=== PATIENT | female | born 1950 | race Caucasian/White ===

== ENCOUNTER → 2016-08-11 | Outpatient (CLI) | payer OTHER ==
[~2016-08-11] MED LIST: AMLO-114 PO; ASPI81TA28 PO; ATOR-22 PO; GLC500 PO; MXZC25 PO; OMEG1CAP60; TPRSR/100 OR
[2016-08-11 13:32] LABS: ESTIMATED AVERAGE GLUCOSE 143 mg/dl; HA1C FLAG Normal (Normal)
[2016-08-11 13:37] LABS: ALT/SGPT 18 U/L (12-78); BLOOD UREA NITROGEN 22 mg/dl (7-18); BUN/CREATININE RATIO 18.1 (10-20); CALCIUM 8.9 mg/dl (8.5-10.1); CARBON DIOXIDE 29 mmol/L (21-32); CHLORIDE 105 mmol/L (98-107); CHOLESTEROL 231 mg/dl (0-200); GLUCOSE 110 mg/dl (70-99); SODIUM 142 mmol/L (136-145); TRIGLYCERIDES 98 mg/dl (0-150); VERY LOW DENSITY LIPOPROT CALC 20 mg/dl
[2016-08-11 13:41] LABS: ALKALINE PHOSPHATASE 93 U/L (45-117); AST/SGOT 15 U/L (15-37); CHOLESTEROL/HDL RATIO 3.6; HDL CHOLESTEROL 65 mg/dl; LDL CHOLESTEROL CALCULATED 146 mg/dl
== END | disposition home or self-care (01) ==
LOC: C.LABPVFM 07:59
PROVIDERS: ATTEND Family Medicine
DX: I10 Essential (primary) hypertension (principal); E78.5 Hyperlipidemia, unspecified; E11.9 Type 2 diabetes mellitus without complications

== ENCOUNTER → 2016-11-17 | Outpatient (CLI) | payer OTHER ==
[2016-11-17 13:32] LABS: ESTIMATED AVERAGE GLUCOSE 140 mg/dl; HA1C FLAG Normal (Normal)
[2016-11-17 13:37] LABS: BLOOD UREA NITROGEN 27 mg/dl (7-18); BUN/CREATININE RATIO 20.5 (10-20); CARBON DIOXIDE 30 mmol/L (21-32); CHLORIDE 106 mmol/L (98-107); GLUCOSE 121 mg/dl (70-99); POTASSIUM 3.7 mmol/L (3.5-5.1); SODIUM 143 mmol/L (136-145)
[2016-11-17 13:38] LABS: CALCIUM 9.4 mg/dl (8.5-10.1)
== END | disposition home or self-care (01) ==
LOC: C.LABPVFM 08:07
PROVIDERS: ATTEND Family Medicine
DX: Z00.00 Encounter for general adult medical examination without abnormal findings (principal); E11.9 Type 2 diabetes mellitus without complications

== ENCOUNTER → 2016-12-05 | Outpatient (CLI) | payer OTHER ==
--- NOTE | 2016-12-05 09:46 | DIAGNOSTIC IMAGING REPORT ---
BILATERAL ANKLE TO BRACHIAL INDICES CLINICAL HISTORY: Absent pedal pulses. COMPARISON STUDY: Left lower extremity arterial Doppler Nov 23 2010. FINDINGS: The right ankle to brachial index measured 1.01 when using the posterior tibial artery and 0.91 when using the dorsalis pedis. The left ankle-brachial index measured 0.95 when using the posterior tibial artery and dorsalis pedis. IMPRESSION: Normal bilateral ankle to brachial indices. Electronically signed by: Hank Alcantar M.D. 12/05/2016 9:45 AM Dictated Date/Time: 12/05/2016 9:44 AM
== END | disposition home or self-care (01) ==
LOC: C.ULTR 09:13
PROVIDERS: ATTEND Family Medicine
DX: R09.89 Other specified symptoms and signs involving the circulatory and respiratory systems (principal)

== ENCOUNTER → 2017-02-12 | Outpatient (CLI) | payer OTHER ==
[2017-02-12 13:01] LABS: ESTIMATED AVERAGE GLUCOSE 134 mg/dl; HA1C FLAG Normal (Normal)
[2017-02-12 14:52] LABS: RATIO 146.7 mcg/mg (0-30.0)
[2017-02-12 15:35] LABS: ALB/GLOB RATIO 0.9 (0.9-2); ALT/SGPT 21 U/L (12-78); AST/SGOT 16 U/L (15-37); BLOOD UREA NITROGEN 25 mg/dl (7-18); BUN/CREATININE RATIO 20.7 (10-20); CALCIUM 9.3 mg/dl (8.5-10.1); CARBON DIOXIDE 30 mmol/L (21-32); CHLORIDE 105 mmol/L (98-107); GLUCOSE 123 mg/dl (70-99); POTASSIUM 3.7 mmol/L (3.5-5.1); SODIUM 141 mmol/L (136-145)
[2017-02-12 15:38] LABS: ALKALINE PHOSPHATASE 90 U/L (45-117); CHOLESTEROL 237 mg/dl (0-200); CHOLESTEROL/HDL RATIO 4.1; HDL CHOLESTEROL 58 mg/dl; LDL CHOLESTEROL CALCULATED 148 mg/dl; TRIGLYCERIDES 155 mg/dl (0-150); VERY LOW DENSITY LIPOPROT CALC 31 mg/dl
== END | disposition home or self-care (01) ==
LOC: C.LABPVFM 07:19
PROVIDERS: ATTEND Nurse Practitioner Family
DX: I10 Essential (primary) hypertension (principal); E78.5 Hyperlipidemia, unspecified; E11.9 Type 2 diabetes mellitus without complications

== ENCOUNTER → 2017-03-05 | Outpatient (CLI) | payer OTHER ==
[2017-03-05 12:51] LABS: URINE APPEARANCE CLEAR (CLEAR); URINE BILIRUBIN NEG (NEG); URINE COLOR YELLOW; URINE EPITHELIAL CELL AUTO >30 /lpf (0-5); URINE NITRITE NEG (NEG); URINE PH 7.5 (4.5-7.5); URINE SPECIFIC GRAVITY 1.012 (1.000-1.030); UROBILINOGEN NEG (NEG)
[2017-03-05 12:53] LABS: MANUAL MICROSCOPIC REQUIRED? NO; REVIEW REQ? NO
== END | disposition home or self-care (01) ==
LOC: C.LABPVFM 07:29
PROVIDERS: ATTEND Nurse Practitioner Family
DX: R80.9 Proteinuria, unspecified (principal)

== ENCOUNTER 2017-03-22 19:21 | Emergency (ER) | payer OTHER ==
[~2017-03-22] VITALS: Ht 157.5 cm; Wt 69.4 kg
[~2017-03-22 19:21] MED LIST changes: -ATOR-22 PO; -GLC500 PO
[2017-03-22 19:24] VITALS: TEMP 36.7; Ht 157.5 cm; Wt 69.4 kg
[2017-03-22] MEDS ORDERED: GLC500 PO (19:50)
[2017-03-22] MEDS ORDERED: ATOR-22 PO (19:50)
--- NOTE | 2017-03-22 20:38 | EMERGENCY ROOM VISIT NOTE ---
ED Visit Note First contact with patient: 19:32 CHIEF COMPLAINT: Scalp laceration, head injury HISTORY OF PRESENT ILLNESS: This 66-year-old female patient presents emergency department ambulatory after striking the head just prior to arrival. The patient states that she was standing on a lawn chair trying to take down a hanging basket when she lost her balance and fell, striking the left side of her head off of the siding. There was no loss of consciousness, blurry vision, nausea, vomiting, or unusual behavior afterwards. The patient rates the pain as sharp and 1/10. The patient denies neck pain. The bleeding has stopped. The patient's tetanus shot is up to date. The patient does not take anticoagulants. REVIEW OF SYSTEMS: A 6 system review of systems was completed with positives and pertinent negatives listed in the HPI. ALLERGIES: No known drug allergies MEDICATIONS: See med list PMH: Diabetes, hypertension SOCIAL HISTORY: Patient lives locally with family. Nonsmoker. PHYSICAL EXAM: Vital Signs: Reviewed Nurse's notes, vital signs stable. GENERAL : This is a 66-year-old female, in no acute distress, well-developed, well- nourished. NEURO: Patient was alert and oriented to person place and time. Sensory and motor functions grossly intact. No focal neurologic deficits. Normal sensation to light and sharp touch. EYES: PERRLA. EOMI. Funduscopic exam without hemorrhages or papilledema. EARS: No hemotympanum. No erazo sign or mastoid tenderness. SKIN: There is a 2 cm laceration on the left aspect of the scalp, posterior to the ear, whose edges are gaping apart. There is no active bleeding. The wound is clean and there are no deep structures present. NECK: Supple, cervical spine nontender to palpation. RADIOGRAPHIC FINDINGS: HEAD WITHOUT CONTRAST (CT) FINDINGS: [employer] topogram: Unremarkable. Ventricles and sulci normal in size. Brain parenchyma normal in appearance with preserved murillo-white differentiation. No mass effect or midline shift. No hemorrhage or acute territorial infarct. Thickened and hyperdense appearance of the right tentorium raising concern for subdural hematoma in this location. This is notably asymmetric to the left. Paranasal sinuses and mastoid air cells clear. Calvarium intact. IMPRESSION: 1. Findings suspicious for acute subdural hematoma along the right tentorium given the history of head injury. Confirmation with noncontrast MR brain recommended. MRI HEAD: Thin acute subdural hematoma measuring 2.5 mm or less across the right tentorium and along the right lateral cerebral hemisphere. No other acute hemorrhage. No acute infarct. No midline shift or hydrocephalus. White matter foci probably statistically secondary to chronic ischemic small vessel white matter disease and less likely due to demyelinating disease or other white matter pathology in a patient of this age. Radiologist: Fco De La Rosa MD EMERGENCY DEPARTMENT COURSE: I examined the patient. CT of the head was performed given the mechanism of the injury and did show findings suspicious for possible subdural hematoma. MRI was recommended for clarification. Noncontrast MRI was performed and read by [facility]rad and did show a small subdural hematoma measuring 2.5 mm. Given this finding, the patient will need to be observed and will need transfer to a tertiary care center with neurosurgery service. Case was discussed with Dr. [facility]. The patient was transferred via ALS to [facility] emergency Department. The patient remained stable throughout her stay in the emergency department. She was asymptomatic at time of transfer. The patient's case was reviewed with Dr. Santoyo, ED attending physician, who agreed with my assessment and treatment plan. Medication reconciliation: I attest that I have personally reviewed the patient 's current medication list. Blood Pressure Screening: Patient was found to have a slightly elevated blood pressure due to circumstances. I do not believe that the patient requires hypertension monitoring. DIAGNOSIS: Subdural hematoma Current/Historical Medications Scheduled Amlodipine (Norvasc), 10 MG PO DAILY Aspirin (Aspirin Ec), 81 MG PO DAILY Atorvastatin (Lipitor), 20 MG PO HS Metformin HCl (Metformin HCl), 500 MG PO QAM Metoprolol Succinate (Metoprolol Succinate ER), 100 MG OR DAILY [place]-3 Fatty Acids (Fish Oil Burp-Less), 1,000 MG BID Triamterene/Hctz (Triamterene/Hctz 37.5-25MG Tab), 1 TAB PO DAILY Allergies Coded Allergies: No Known Allergies (Unverified , 03/22/17) Vital Signs Date Time Temp Pulse Resp B/P (MAP) Pulse Ox O2 Delivery O2 Flow Rate FiO2 03/22/17 23:32 98 18 156/93 97 Room Air 03/22/17 21:42 96 147/80 94 03/22/17 19:24 36.7 105 20 151/37 95 Room Air Laboratory Results Test 03/23/17 00:40 Departure Information Impression Primary Impression: Subdural hematoma Dispostion Home / Self-Care Condition GOOD Referrals Lor Chavez (PCP) Patient Instructions [facility]
--- NOTE | 2017-03-22 21:12 | DIAGNOSTIC IMAGING REPORT ---
HEAD WITHOUT CONTRAST (CT) CLINICAL HISTORY: 66 years-old Female presenting with head injury. TECHNIQUE: Multidetector CT imaging of the head was performed without the use of intravenous contrast. IV contrast: None. A dose lowering technique was used consistent with the principles of ALARA (as low as reasonably achievable). COMPARISON: None. CT DOSE (mGy.cm): The estimated cumulative dose is 537.48 mGy.cm. FINDINGS: [employer] topogram: Unremarkable. Ventricles and sulci normal in size. Brain parenchyma normal in appearance with preserved murillo-white differentiation. No mass effect or midline shift. No hemorrhage or acute territorial infarct. Thickened and hyperdense appearance of the right tentorium raising concern for subdural hematoma in this location. This is notably asymmetric to the left. Paranasal sinuses and mastoid air cells clear. Calvarium intact. IMPRESSION: 1. Findings suspicious for acute subdural hematoma along the right tentorium given the history of head injury. Confirmation with noncontrast MR brain recommended. Electronically signed by: Bassam Coffey M.D. 03/22/2017 9:10 PM Dictated Date/Time: 03/22/2017 9:00 PM
[2017-03-23 00:50] LABS: BASO % 0.2 %; BASO ABS # 0.02 K/uL (0-0.2); COMPLETE YES; EOS % 0.6 %; HEMATOCRIT 42.2 % (37-47); IG% 0.4 %; LYMPH % 26.2 %; LYMPH ABS # 3.17 K/uL (1.2-3.4); MEAN CELL VOLUME 84.2 fL (80-100); MEAN CORPUSCULAR HEMOGLOBIN 28.9 pg (25-34); MEAN CORPUSCULAR HGB CONC 34.4 g/dl (32-36); MEAN PLATELET VOLUME 9.3 fL (7.4-10.4); MONO % 5.7 %; NEUT % 66.9 %; PLATELET COUNT 249 K/uL (130-400); RED BLOOD COUNT 5.01 M/uL (4.2-5.4); WHITE BLOOD COUNT 12.08 K/uL (4.8-10.8)
[2017-03-23 00:59] LABS: INR 0.9 (0.9-1.1); PARTIAL THROMBOPLASTIN RATIO 1.1; PROTHROMBIN TIME (PATIENT) 9.7 SECONDS (9.0-12.0)
--- NOTE | 2017-03-23 01:05 | EMERGENCY ROOM VISIT NOTE ---
ED Visit Note First contact with patient: 19:32 Patient seen and examined at bedside. Discussed all results with patient and family all questions answered. Patient with no headache, blurred vision, dizziness, numbness or tingling, nausea or vomiting. Patient with a normal neuro exam at bedside. Discussed with patient and transferred to [place] for additional monitoring and likely repeat imaging. She verbalized understanding.
[2017-03-23 01:07] LABS: BUN/CREATININE RATIO 19.8 (10-20); CALCIUM 9.7 mg/dl (8.5-10.1); CREATININE 1.3 mg/dl (0.60-1.20); POTASSIUM 3.5 mmol/L (3.5-5.1)
[2017-03-23 01:44] VITALS: BP 134/88; PULSE 68; O2SAT 92
--- NOTE | 2017-03-23 06:30 | DIAGNOSTIC IMAGING REPORT ---
MRI OF THE BRAIN WITHOUT CONTRAST CLINICAL HISTORY: Head trauma. Pain. Abnormal head CT with possible right tentorial subdural hematoma. COMPARISON STUDY: Noncontrast head CT dated 03/22/2017 FINDINGS: Sagittal T1, axial diffusion, proton density and T2 weighted axial, coronal FLAIR, and axial T1-weighted images were acquired. No intra or extra-axial mass lesions are visualized. There is a trace right tentorial and right parietotemporal subdural hematoma. There is no midline shift. Axial diffusion-weighted images reveal no evidence of acute or subacute infarction. There is no evidence of ventricular dilatation. Proton density T2-weighted and FLAIR images reveal scattered foci of increased T2 signal within the white matter, likely on a small vessel basis. There are no abnormal flow voids. IMPRESSION: 1. Tiny right tentorial and right parietotemporal subdural hematoma, measuring a maximum of 2.4 mm in thickness. 2. No evidence of acute or subacute infarction Electronically signed by: Gabriele Hinojosa M.D. 03/23/2017 6:29 AM Dictated Date/Time: 03/23/2017 6:26 AM
== END 2017-03-23 01:44 | disposition short-term general hospital (02) ==
LOC: C.EDB 19:23 → C.EDA 03-23 01:44
DX: S06.5X0A Traumatic subdural hemorrhage without loss of consciousness, initial encounter (principal); W07.XXXA Fall from chair, initial encounter; W22.8XXA Striking against or struck by other objects, initial encounter; Y93.89 Activity, other specified; Y99.8 Other external cause status; E11.9 Type 2 diabetes mellitus without complications; I10 Essential (primary) hypertension; Z79.82 Long term (current) use of aspirin; Z79.84 Long term (current) use of oral hypoglycemic drugs; Z79.899 Other long term (current) drug therapy

== ENCOUNTER → 2017-05-18 | Outpatient (CLI) | payer OTHER ==
[~2017-05-18] MED LIST changes: +ATOR-22 PO; +GLC500 PO
== END | disposition home or self-care (01) ==
LOC: C.LABPVFM 08:10
PROVIDERS: ATTEND Nurse Practitioner Family
DX: R80.9 Proteinuria, unspecified (principal)

== ENCOUNTER → 2017-05-23 | Outpatient (CLI) | payer OTHER ==
[2017-05-23 14:34] LABS: ALT/SGPT 23 U/L (12-78); AST/SGOT 17 U/L (15-37); BLOOD UREA NITROGEN 29 mg/dl (7-18); BUN/CREATININE RATIO 20.1 (10-20); CALCIUM 9.2 mg/dl (8.5-10.1); CARBON DIOXIDE 26 mmol/L (21-32); CHLORIDE 106 mmol/L (98-107); CREATININE 1.47 mg/dl (0.60-1.20); GLUCOSE 86 mg/dl (70-99); POTASSIUM 3.6 mmol/L (3.5-5.1); SODIUM 142 mmol/L (136-145)
[2017-05-23 14:37] LABS: ALKALINE PHOSPHATASE 105 U/L (45-117)
== END | disposition home or self-care (01) ==
LOC: C.LABPVFM 07:36
PROVIDERS: ATTEND Nurse Practitioner Family
DX: E78.5 Hyperlipidemia, unspecified (principal)

== ENCOUNTER → 2017-05-28 | Outpatient (CLI) | payer OTHER ==
--- NOTE | 2017-05-28 14:31 | MAMMOGRAPHY REPORT ---
BILATERAL DIGITAL SCREENING MAMMOGRAM TOMOSYNTHESIS WITH CAD: 05/28/2017 CLINICAL HISTORY: Routine screening. Patient has no complaints. TECHNIQUE: Breast tomosynthesis in addition to standard 2D mammography was performed. Current study was also evaluated with a Computer Aided Detection (CAD) system. COMPARISON: Comparison is made to exams dated: 05/17/2015 mammogram, 05/24/2016 mammogram, 4 mammogram, 04/30/2013 mammogram, 04/17/2012 mammogram, and 04/05/2011 mammogram - [facility]. BREAST COMPOSITION: There are scattered areas of fibroglandular density in both breasts. FINDINGS: There are are minimal vascular calcifications in the breasts. Stable nodularity in the la teral right breast. No new suspicious mass, architectural distortion or cluster of microcalcificatio ns is seen. IMPRESSION: ACR BI-RADS CATEGORY 1: NEGATIVE There is no mammographic evidence of malignancy. A 1 year screening mammogram is recommended. The pa tient will receive written notification of the results. Approximately 10% of breast cancers are not detected with mammography. A negative mammographic report should not delay biopsy if a clinically suggestive mass is present. Ann Carson M.D. ay/:05/28/2017 13:49:07 Porcelain Turner: Dawson Downs, M, [facility] letter sent: Normal 1/2 BI-RADS Code: ACR BI-RADS Category 1: Negative
== END | disposition home or self-care (01) ==
LOC: C.MAMM 13:05
PROVIDERS: ATTEND Nurse Practitioner Family
DX: Z12.31 Encounter for screening mammogram for malignant neoplasm of breast (principal)

== ENCOUNTER → 2017-11-21 | Outpatient (CLI) | payer OTHER ==
[2017-11-21 12:40] LABS: BASO % 0.2 %; BASO ABS # 0.02 K/uL (0-0.2); EOS % 1.4 %; EOS ABS # 0.17 K/uL (0-0.5); HEMATOCRIT 40.6 % (37-47); HEMOGLOBIN 13.7 g/dL (12.0-16.0); IG# 0.02 K/uL (0.00-0.02); LYMPH % 25.2 %; LYMPH ABS # 2.96 K/uL (1.2-3.4); MEAN CELL VOLUME 84.4 fL (80-100); MEAN CORPUSCULAR HEMOGLOBIN 28.5 pg (25-34); MEAN CORPUSCULAR HGB CONC 33.7 g/dl (32-36); MEAN PLATELET VOLUME 9.5 fL (7.4-10.4); MONO % 7.2 %; MONO ABS # 0.85 K/uL (0.11-0.59); NEUT % 65.8 %; NEUT ABS # 7.71 K/uL (1.4-6.5); PLATELET COUNT 254 K/uL (130-400); RED CELL DISTRIBUTION WIDTH CV 13.9 % (11.5-14.5); RED CELL DISTRIBUTION WIDTH SD 42.8 fL (36.4-46.3); WHITE BLOOD COUNT 11.73 K/uL (4.8-10.8)
[2017-11-21 13:07] LABS: ALBUMIN 3.5 gm/dl (3.4-5.0); BLOOD UREA NITROGEN 29 mg/dl (7-18); CALCIUM 9.1 mg/dl (8.5-10.1); CARBON DIOXIDE 28 mmol/L (21-32); CREATININE 1.44 mg/dl (0.60-1.20); GLUCOSE 113 mg/dl (70-99); PHOSPHORUS 3.1 mg/dl (2.5-4.9); POTASSIUM 3.6 mmol/L (3.5-5.1); SODIUM 138 mmol/L (136-145)
[2017-11-21 13:30] LABS: HEMOGLOBIN A1C 6.6 % (4.5-5.6)
== END | disposition home or self-care (01) ==
LOC: C.LABPVFM 06:59
PROVIDERS: ATTEND Nurse Practitioner
DX: E11.22 Type 2 diabetes mellitus with diabetic chronic kidney disease (principal); I12.9 Hypertensive chronic kidney disease with stage 1 through stage 4 chronic kidney disease, or unspecified chronic kidney disease; N18.9 Chronic kidney disease, unspecified; E78.5 Hyperlipidemia, unspecified